=== PATIENT | female | born 1970 | race Hispanic/Latino ===

== ENCOUNTER 2019-08-13 20:08 | Inpatient (IN) | payer SELFPAY ==
[~2019-08-13 20:08] MED LIST: ISOVUE-370 76%-LOCM 1 ML ONE
[2019-08-13 20:56] LABS: #Eosinphils 0.1 thou/uL (0.0-0.7); #Lymphocytes 2.1 thou/uL (1.20-3.40); #Monocytes 0.9 thou/uL (0.11-0.59); #Neutrophils 9.8 thou/uL (1.40-6.50); %Basophils 0.1 % (0.0-1.0); %Eosinophils 0.8 % (0.0-10.0); %Lymphocytes 16.5 % (21.0-51.0); %Monocytes 6.8 % (0.0-10.0); %Neutrophils 75.9 % (42.0-75.0); Hemoglobin 11.6 g/dL (12.0-16.0); Mean Corpuscular HGB CONC 33.5 g/dL (32.0-36.0); Mean Corpuscular Hemoglobin 28.7 pg (27.0-31.0); Mean Corpuscular Volume 85.7 fL (78.0-98.0); Mean Platelet Volume 6.4 fL (7.4-10.4); Platelet Count 506 thou/uL (130-400); RBC Distribution Width 13.1 % (11.5-14.5); Red Blood Cell (RBC) Count 4.06 mill/uL (4.20-5.40)
[2019-08-13 21:19] LABS: ALT (SGPT) 20 U/L (8-55); AST (SGOT) 22 U/L (5-34); Albumin 3.4 g/dL (3.5-5.0); Alkaline Phosphatase 163 U/L (40-110); Anion Gap 13 mmol/L (10-20); BUN (Urea Nitrogen) 10 mg/dL (7.0-18.7); Bilirubin, Total 0.4 mg/dL (0.2-1.2); Calc. Creatinine Clearance 0 mL/min (70-130); Calcium 8.7 mg/dL (7.8-10.44); Carbon Dioxide 23 mmol/L (22-29); Chloride 102 mmol/L (98-107); Estimated GFR-MDRD Greater than 90; Globulin 4.7 g/dL (2.4-3.5); Glucose 121 mg/dL (70-105); Lipase 24 U/L (8-78); Protein, Total 8.1 g/dL (6.0-8.3); Sodium 134 mmol/L (136-145)
[2019-08-13] MEDS ORDERED: Morphine 4 MG/ML VIAL ONE (22:08)
--- NOTE | 2019-08-13 22:32 | RAD ---
XR Chest 1 View Portable History: Cough. Shortness of breath. Comparison: Radiograph 2012 Findings: Left basilar opacity and layering effusion. No pneumothorax. Relatively clear. No acute oss eous abnormality. Impression: Left basilar opacity concerning for infection with parapneumonic effusion. Follow-up afte r treatment recommended.
--- NOTE | 2019-08-13 22:41 | CT ---
CT Abdomen Pelvis W Con History: Abdominal pain Comparison: CT abdomen 2012 Findings: Loculated left pleural effusion with left lower lobe consolidation. Abnormal enhancement of the pleura. Right lung is relatively clear. Large volume ascites which is loculated with abnormal peritoneal enha ncement. Also peritoneal nodularity. Left adnexal mass. There are abnormal omental nodules as well as small bowel mesenteric nodules. Liver is unremarkable as well as the spleen. Normal proximal small bowel rotation. Pancreas is unrema rkable. No hydronephrosis. No acute osseous abnormality. Impression: 1. Layering left pleural effusion with left lower lobe consolidation. The pleural enhancement is abno rmal which may reflect metastatic left pleural effusion versus parapneumonic effusion. 2. Loculated ascites with abnormal peritoneal enhancement, peritoneal nodules, omental nodules, and m esenteric nodules suggesting gynecologic malignancy with peritoneal spread of tumor. 3. Abnormal cystic mass of the left adnexa concerning for malignancy. Gynecologic consultation advise d. 4. Centrally necrotic right retroperitoneal periaortic lymph nodes indicating metastatic disease. 5. Numerous external iliac and internal iliac metastatic lymph nodes.
[2019-08-13 23:05] LABS: Bilirubin Negative (Negative); Blood, Urine Negative (Negative); Clarity Clear (Clear); Glucose, Urine (Dipstick) Normal (Negative); Leukocyte Negative Leu/uL (Negative); Nitrite Negative (Negative); Protein, Urine (Dipstick) 20 mg/dL (Neg-Trace); Urobilinogen Normal mg/dL (Less than 2)
[2019-08-13] MEDS ORDERED: cefTRIAXone\\ROCEPHIN 2 GM VIAL ONE (23:08)
[2019-08-14] MEDS ORDERED: Morphine 2 MG/ML SYRINGE SLOW IVP PRN (00:05)
[2019-08-14] MEDS ORDERED: HYDROcodone/Acetaminophen 5/325 mg Tablet PO PRN ×2 (00:06)
[2019-08-14] MEDS ORDERED: Acetaminophen 325 MG TAB PO PRN (00:06)
[2019-08-14 00:20] VITALS: BMI 28.5
[2019-08-14] MEDS ORDERED: Sodium Chloride 0.65% Nasal 44 ML BOT EA NARE PRN (07:52)
[2019-08-14] MEDS ORDERED: hydrALAZINE 20 MG/ML VIAL SLOW IVP PRN (07:52)
[2019-08-14] MEDS ORDERED: Cepastat Lozenges 1 LOZ PO PRN (07:52)
[2019-08-14] MEDS ORDERED: Senokot S 8.6-50 MG TAB PO PRN (07:52)
[2019-08-14] MEDS ORDERED: Calcium Carbonate 500 MG ChewTAB PO PRN (07:52)
[2019-08-14] MEDS ORDERED: Zolpidem Tartrate 5 MG TAB PO PRN (07:52)
[2019-08-14] MEDS ORDERED: Loratadine 10 MG TAB PO PRN (07:52)
[2019-08-14] MEDS ORDERED: Diabetic Tussin 200 MG/10 ML UDCUP PO PRN (07:52)
[2019-08-14] MEDS ORDERED: Loperamide HCl 2 MG CAP PO PRN (07:52)
[2019-08-14] MEDS ORDERED: Bisacodyl 10 MG SUPP PR PRN ×2 (07:52)
[2019-08-14] MEDS ORDERED: Ondansetron PF 4 MG/2 ML Vial IVP PRN (07:52)
[2019-08-14] MEDS ORDERED: Ondansetron ODT 4 MG TAB PO PRN (07:52)
--- NOTE | 2019-08-14 08:30 | PDOC.EVN ---
Event Note - Event Note Event Note: OBGYN: I received this notification this AM for possible BRANCH STORE MANAGER consultation. However, based on the CT results, there is a high probability of Gynecologic malignancy. It is recommended to have direct Insolvency Consultant Onc referral, not OBGYN Hospitalist eval. I have discussed this with the patient's RN and we will seek case management referral to the appropriate physician group.
--- NOTE | 2019-08-14 09:52 | ULT ---
TRANSVAGINAL PELVIC ULTRASOUND WITH DOPPLER: HISTORY: History of ovarian mass. Ascites. COMPARISON: None. TECHNIQUE: Multiple nathan-scale and color Doppler images were obtained in a transabdominal and transvaginal pelvi c ultrasound. Spectral analysis of the Doppler wave-forms of the ovaries was performed. FINDINGS: Re-demonstration of cystic mass, containing internal septation of the left adnexa, measuring approxim ately 2.8 x 2 cm. There is complex pelvic ascites which does exert mass effect upon the uterus. 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 Recommend gynecologic consultation. Transcribed Date/Time: 08/14/2019 10:31 AM
[2019-08-14 12:07] LABS: INR-International Normal Ratio 1.1; PTT 33.1 SEC (22.9-36.1); Prothrombin Time 14.6 SEC (12.0-14.7)
--- NOTE | 2019-08-14 12:19 | HP ---
PRIMARY CARE PHYSICIAN: [facility] admission. REASON FOR ADMISSION: Left pleural effusion, left lower lobe consolidation, loculated ascites, and left adnexal cyst. HISTORY OF PRESENT ILLNESS: A 49-year-old female, who speaks Indonesian only, so I spoke with the patient with the help of family member, who helped me to interpret. The patient presented to emergency room with complaint of one month abdominal discomfort. She has one month abdominal discomfort, which predominantly gets worse after food. She feels that her stomach is getting bloated. She has low back pain predominantly on the left side. The patient also reports that she gets discomfort when she tried to bend. Her appetite is also reduced. The patient also lost some weight. The patient also has 2-week history of intermittent cough, which especially gets worse when she lie down and whenever she talks too much. She does have night sweats. She denies any pleuritic chest pain. She denies any fatigue , but she report shortness of breath on exertion. She denies any constipation, diarrhea, melena, or hematochezia. The patient also noticed that her abdomen was getting distended. This symptoms is going on for about a month, but for last 2 weeks, her symptoms gotten worse and that is why she decided to come to emergency room for evaluation. In the emergency room, the patient had routine blood test done, which showed leukocytosis and thrombocytosis and mild anemia. Her albumin was 3.4, and her urinalysis was clean. CT abdomen and pelvis showed left pleural effusion and left lower lobe consolidation as well as pleural enhancement and there was loculated ascites with peritoneal nodules and also found with abnormal cystic mass in left adnexa as well as necrotic right-sided retroperitoneal periaortic lymph node. In the emergency room, the patient was given Rocephin 2 g and morphine 4 mg. Subsequently, she was admitted to oncology floor. PAST MEDICAL HISTORY: History of liver abscess in 2012, required CT-guided drainage. PAST SURGICAL HISTORY: CT-guided liver abscess drainage, femoral central line in 2012. PAST PSYCHIATRIC HISTORY: Reviewed and negative. SOCIAL HISTORY: The patient is single. She denies any smoking. No alcohol. No other illicit drug abuse. FAMILY HISTORY: Positive for colon cancer to her mother. [employer] HISTORY: The patient has regular menstrual cycle and her last menstrual cycle last month. ALLERGY: NKDA REVIEW OF SYSTEMS: CONSTITUTIONAL: Negative for weight loss or gain, ability to conduct usual activities. SKIN: Negative for rash, itching. EYES: Negative for double vision, pain. ENT/MOUTH: Negative for nose bleeding, neck stiffness, pain, tenderness. CARDIOVASCULAR: Negative for palpitations, dyspnea on exertion, orthopnea. RESPIRATORY: Negative for shortness of breath, wheezing, cough, hemoptysis, fever or night sweats. GASTROINTESTINAL: Negative for poor appetite, abdominal pain, heartburn, nausea , vomiting, constipation, or diarrhea. GENITOURINARY: Negative for urgency, frequency, dysuria, nocturia. MUSCULOSKELETAL: Negative for pain, swelling. NEUROLOGIC/PSYCHIATRIC: Negative for anxiety, depression. ALLERGY/IMMUNOLOGIC: Negative for skin rash, bleeding tendency. Please see my HPI for pertinent positives and negatives. All other review of systems reviewed and negative except as mentioned in HPI. EMERGENCY ROOM COURSE: The patient was given Rocephin and morphine. PHYSICAL EXAMINATION: VITAL SIGNS: Currently; blood pressure 113/74, pulse 115, respiratory rate 18, temperature 99.4, and saturation 96% on room air. Weight 64.4 kg. GENERAL: The patient is currently alert and awake, in no obvious acute distress. HEENT: Head, normocephalic and atraumatic. Eyes, pupils are round and reactive to light. Extraocular muscle intact. ENT, oropharynx within normal limits. Moist mucous membrane. No oral lesion. No pharyngeal erythema. No exudate. NECK: Supple. No JVD. No thyromegaly. No carotid bruit. No jugular venous distention. LUNGS: Air entry reduced on the left side without any obvious rales or wheezing. No respiratory distress. No accessory muscles of respiration in use. CARDIAC: S1 and S2 regular. No murmur. No gallop. No rub. ABDOMEN: Distended. Mild discomfort noted in left lower quadrant. No peritoneal sign. No guarding. No rigidity. No rebound. BACK: The patient does have discomfort on the left side of the back, but no point tenderness. EXTREMITIES: No edema. Good distal pulsation. No calf tenderness. SKIN: No skin rash. HEMATOLOGICAL SYSTEM: No lymphadenopathy. NEUROLOGIC: Nonfocal examination. SIGNIFICANT LABORATORY DATA: CBC; WBC 13.0, hemoglobin 11.6, and platelets 506 with left shift. BMP; sodium 134, potassium 4.0, chloride 102, carbon dioxide 23, BUN 10, creatinine 0.61, glucose 121, and calcium 8.7. LFT; AST 22, ALT 20, alkaline phosphatase 163, albumin 3.4, and lipase 24. TSH 4.86. Troponin negative. BNP less than 10. Urinalysis unremarkable. Chest x-ray showing left basilar opacity concerning for infection with parapneumonic effusion. CT abdomen and pelvis showing left pleural effusion and left lower lobe consolidation, loculated ascites, peritoneal nodule, cystic mass in the left adnexa, necrotic right peritoneal periaortic lymph node. Ultrasound pelvis showing complex left ovarian cystic mass with complex ascites. ASSESSMENT AND PLAN: 1. Left pleural effusion and left lower lobe consolidation. The patient does not report any fever, but she does have cough. I am suspecting predominantly towards pleural effusion, likely due to underlying ovarian malignancy, but underlying consolidation is less likely. We will give her Rocephin 1 g q.24 hour and Levaquin 500 mg IV daily for suspected pneumonia, but which is less likely. 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 We will continuously monitor while in hospital and give empiric antibiotic for benefit of doubt, we will continue with IV fluid. 2. Loculated and complex ascites, likely related with underlying ovarian malignancy. The patient also has a peritoneal nodule and metastasis. Ovarian malignancy is highly suspected. 3. Left adnexal complex cystic mass. 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 [employer] doctor is already consulted and they prefer her to be transferred to other hospital for followup care. At this point, the patient is stable and problem is going on for a period of time and that is why the patient will benefit from [employer] oncologist at [place], [place]. The patient already has advanced disease and her long-term prognosis is poor. We will consult Palliative Care. 4. Deep venous thrombosis prophylaxis, Lovenox 40 mg subcu daily. Gastrointestinal prophylaxis, Pepcid 20 mg p.o. b.i.d. Code status, the patient is full code. The patient does not have any surrogate decision maker. Disposition plan based on clinical course. 5. Hypoalbuminemia likely due to chronic disease. Plan of care extensively discussed with the patient in detail with the help of polyethylene bag machine operator at bedside. Job ID: [id number] [facility]
--- NOTE | 2019-08-14 12:42 | CON ---
DATE OF CONSULTATION: REASON FOR CONSULT: Metastatic disease. HISTORY OF PRESENT ILLNESS: The patient is a 49-year-old Armenian-speaking female, who presented to the emergency room for back and abdominal pain. Pain started over a month ago and has progressively worsened. She complains of abdominal distention, but denies nausea, vomiting, diarrhea, or constipation. She underwent an abdomen and pelvis CT scan which demonstrated a left pleural effusion with left lower lobe consolidation. There was loculated ascites with abnormal peritoneal enhancement. There were peritoneal, omental, and mesenteric nodules. There was an abnormal cystic mass of the left adnexa; centrally necrotic right retroperitoneal periaortic lymph nodes and numerous external iliac and internal iliac metastatic lymph nodes. She was admitted for further workup. She has undergone a pelvic ultrasound which confirms a large complex left ovarian cystic mass measuring 2.8 x 2 cm. She denies any discharge or bleeding from her vagina. Her last pelvic exam was 13 years ago when her child was born. History was obtained from the patient and friends at bedside using the casey saw operator, Anna as official court interpreter. PAST MEDICAL HISTORY: None. PAST SURGICAL HISTORY: None. ALLERGIES: NO KNOWN DRUG ALLERGIES. HOME MEDICATIONS: None. FAMILY HISTORY: Mother had colon cancer. SOCIAL HISTORY: . Has a 13-year-old child. Lives in [place]. 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 No alcohol, tobacco, or illicit drug use. REVIEW OF SYSTEMS: CONSTITUTIONAL: No fever or chills. Positive for night sweats. EYES: No blurred or double vision. ENT: No pain, hoarseness, sore throat, or dysphagia. CV: No chest pain, palpitations, or syncope. RESPIRATORY: Positive for shortness of breath. ABDOMEN: Positive for abdominal distention. : No dysuria or hematuria. MUSCULOSKELETAL: Positive for back pain. SKIN: No rash or pruritus. HEMATOLOGICAL: No bleeding, bruising, or clotting. NEUROLOGICAL: No headaches, numbness, tingling, or seizure activity. PSYCH: No anxiety or depression. PHYSICAL EXAMINATION: VITAL SIGNS: Temperature is 98.8, pulse is 93, respiratory rate is 18, BP is 124/75. She is 93% on room air. GENERAL: This is a well-developed, well-nourished female, in no acute distress. HEENT: Normocephalic and atraumatic. Pupils are equal and reactive to light. NECK: Supple. CV: Regular rate and rhythm. LUNGS: Clear to auscultation. ABDOMEN: Distended and firm. Bowel sounds are positive. There is no organomegaly. EXTREMITIES: No clubbing or cyanosis. SKIN: No rash. HEMATOLOGICAL: No petechiae or purpura. NEUROLOGICAL: Nonfocal. BREASTS: She has no nodules, masses, or skin changes. PERTINENT LABS AND X-RAYS: Current WBCs are 13, hemoglobin 11.6, hematocrit 34.8, platelet count is 506,000, 75% neutrophils, 16% lymphocytes. Sodium is 134, potassium 4.0, chloride 102, CO2 is 23, BUN is 10, creatinine 0.61, calcium 8.7, bilirubin 0.7, AST is 22, ALT is 20, alkaline phosphatase is 163. Troponin is negative. BNP is less than 10. Serum total protein 8.1, albumin 3.4, globulin 2.7. TSH is normal. Urine is negative. ASSESSMENT: Metastatic disease with ovarian mass, ascites, pleural effusion. DISCUSSION: The patient needs a tissue diagnosis. She has symptomatic ascites. We will order a paracentesis and hopefully, a diagnosis can be obtained from cytology. Ultimately, she would see Product Safety Consultant/Oncology surgeon. However, the patient has no insurance and it may be very difficult to get her to a surgeon. The financial counselors have seen the patient and are working on assistance. Further recommendations will be based once cytology has completed. Thank you for the consult. Job ID: [id number] [facility]
[2019-08-14] MEDS ORDERED: Sodium Bicarbonate 2.5 MEQ/5 ML VIAL ONE (13:02)
--- NOTE | 2019-08-14 14:57 | ULT ---
Ultrasound-guided paracentesis: HISTORY: Symptomatic, complex ascites FINDINGS: Informed consent obtained prior to the procedure. Preprocedural imaging demonstrated signif icant ascites throughout the abdomen and pelvis. Right lower quadrant prepped and draped in normal sterile fashion and anesthetized with 1% buffered l idocaine. With direct sonographic guidance, 5 Khmer Yueh catheter is advanced into the ascites and removal of the stylet yielded sanguinousfluid. 2.7 L were removed. The patient tolerated the procedure well. No postprocedural complications. IMPRESSION: Successful ultrasound-guided paracentesis yielding 2.7 L of sanguinous ascites.
[2019-08-14] MEDS: HYDROcodone/Acetaminophen 7.5/325 mg Tablet PO PRN ×2 (15:26→21:59)
[2019-08-14] MEDS: Famotidine 20 MG TAB PO SCH ×2 (15:30→21:58)
[2019-08-14] MEDS: Enoxaparin Sodium 40 MG/0.4 ML SYRINGE SC SCH (15:30)
[2019-08-14] MEDS: Famotidine/PF 20 mg/2ml Vial SLOW IVP SCH (15:48)
[2019-08-14] MEDS: Sodium Chloride 0.9% 1,000 ML IV SCH (16:05)
[2019-08-14] MEDS ORDERED: FLU VACC QS2019-20(6MOS UP)/PF 60 MCG/0.5 ML SYRINGE IM ONE (21:00)
[2019-08-14] MEDS ORDERED: Prevnar 13-Val Conj/PF 0.5 ML SYRINGE IM ONE (21:00)
[2019-08-14] MEDS: cefTRIAXone\\ROCEPHIN 1 GM in Sodium Chloride 0.9% 100 ML IVPB SCH (21:59)
[2019-08-15] MEDS: HYDROcodone/Acetaminophen 7.5/325 mg Tablet PO PRN (02:21)
[2019-08-15 03:58] LABS: #Eosinphils 0.1 thou/uL (0.0-0.7); #Lymphocytes 1.8 thou/uL (1.20-3.40); #Neutrophils 10.4 thou/uL (1.40-6.50); %Basophils 0.1 % (0.0-1.0); %Eosinophils 0.7 % (0.0-10.0); %Lymphocytes 13.7 % (21.0-51.0); %Monocytes 7.8 % (0.0-10.0); %Neutrophils 77.6 % (42.0-75.0); Hemoglobin 11.3 g/dL (12.0-16.0); Mean Corpuscular HGB CONC 33.2 g/dL (32.0-36.0); Mean Corpuscular Hemoglobin 28.8 pg (27.0-31.0); Mean Corpuscular Volume 86.8 fL (78.0-98.0); Mean Platelet Volume 6.3 fL (7.4-10.4); Platelet Count 499 thou/uL (130-400); RBC Distribution Width 13.1 % (11.5-14.5); Red Blood Cell (RBC) Count 3.91 mill/uL (4.20-5.40); White Blood Cell (WBC) Count 13.3 thou/uL (4.8-10.8)
[2019-08-15 04:20] LABS: ALT (SGPT) 15 U/L (8-55); AST (SGOT) 16 U/L (5-34); Albumin 2.7 g/dL (3.5-5.0); Alkaline Phosphatase 126 U/L (40-110); Anion Gap 9 mmol/L (10-20); BUN (Urea Nitrogen) 8 mg/dL (7.0-18.7); Bilirubin, Total 0.3 mg/dL (0.2-1.2); Calc. Creatinine Clearance 124 mL/min (70-130); Calcium 8.2 mg/dL (7.8-10.44); Carbon Dioxide 23 mmol/L (22-29); Chloride 105 mmol/L (98-107); Estimated GFR-MDRD Greater than 90; Glucose 105 mg/dL (70-105); Potassium 3.9 mmol/L (3.5-5.1); Protein, Total 6.7 g/dL (6.0-8.3); Sodium 133 mmol/L (136-145)
[2019-08-15] MEDS: Famotidine/PF 20 mg/2ml Vial SLOW IVP SCH ×3 (06:56→20:34)
[2019-08-15] MEDS: Sodium Chloride 0.9% 1,000 ML IV SCH (10:22)
[2019-08-15] MEDS: Enoxaparin Sodium 40 MG/0.4 ML SYRINGE SC SCH (10:22)
[2019-08-15] MEDS: Famotidine 20 MG TAB PO SCH ×2 (10:23→23:27)
[2019-08-15] MEDS: Acetaminophen 325 MG TAB PO PRN ×2 (10:24→19:10)
--- NOTE | 2019-08-15 11:38 | PDOC.HOSPP ---
- Subjective Encounter Date: 08/15/19 Encounter Time: 07:00 Subjective: Patient seen and examined. No new complaints. No overnight events pt has dry cough, no chest pain, less abdominal discomfort - Objective Vital Signs & Weight: Vital Signs (12 hours) Temp Pulse Resp BP Pulse Ox 08/15/19 09:47 98.3 F 90 16 130/75 95 08/15/19 09:15 95 08/15/19 08:34 98.3 F 90 16 130/75 95 Weight Admit Weight 141 lb 6.4 oz Weight 141 lb 6.4 oz I&O: 08/14/19 08/15/19 08/16/19 06:59 06:59 06:59 Intake Total 240 Balance 240 Result Diagrams: 08/15/19 03:45 08/15/19 03:49 Hospitalist ROS - Review of Systems Constitutional: denies: fever, chills, sweats, weakness, malaise, other Eyes: denies: pain, vision change, conjunctivae inflammation, eyelid inflammation, redness, other ENT: denies: ear pain, ear discharge, nose pain, nose discharge, nose congestion , mouth pain, mouth swelling, throat pain, throat swelling, other Respiratory: reports: cough, dry. denies: shortness of breath, hemoptysis, SOB with excertion, pleuritic pain, sputum, wheezing, other Cardiovascular: denies: chest pain, palpitations, orthopnea, paroxysmal noc. dyspnea, edema, light headedness, other Gastrointestinal: denies: nausea, vomiting, abdominal pain, diarrhea, constipation, melena, hematochezia, other Genitourinary: denies: dysuria, frequency, incontinence, hematuria, retention, other Musculoskeletal: denies: neck pain, shoulder pain, arm pain, back pain, hand pain, leg pain, foot pain, other Skin: denies: rash, lesions, walker, bruising, other - Medication Medications: Active Medications Generic Name Dose Route Start Last Admin Trade Name Freq PRN Reason Stop Dose Admin Acetaminophen 650 mg 08/14/19 07:52 08/15/19 10:24 Tylenol PO 650 mg Q4H PRN Administration Headache/Fever/Mild Pain (1-3) Hydrocodone Bitart/Acetaminophen 1 tab 08/14/19 07:52 08/15/19 02:21 [place] 7.5/325 PO 1 tab Q4H PRN Administration Moderate Pain (4-6) Enoxaparin Sodium 40 mg 08/14/19 09:00 08/15/19 10:22 Lovenox SC 40 mg 0900 DIMITRIOS Administration Famotidine 20 mg 08/14/19 09:00 08/15/19 10:59 Pepcid SLOW IVP Not Given Q12HR DIMITRIOS Famotidine 20 mg 08/14/19 09:00 08/15/19 10:23 Pepcid PO 20 mg BID DIMITRIOS Administration Sodium Chloride 1,000 mls @ 100 mls/hr 08/14/19 08:00 08/15/19 10:22 Normal Saline 0.9% IV 1,000 mls .Q10H DIMITRIOS Administration Ceftriaxone Sodium 1 gm/ 100 mls @ 200 mls/hr 08/14/19 23:00 08/14/19 21:59 Sodium Chloride IVPB 100 mls 2300 DIMITRIOS Administration Levofloxacin 500 mg/ Device 100 mls @ 100 mls/hr 08/14/19 12:00 08/14/19 16: 26 IVPB 100 mls 1200 DIMITRIOS Administration Sodium Chloride 10 ml 08/14/19 09:00 08/14/19 22:00 Flush - Normal Saline IVF 10 ml Q12HR DIMITRIOS Administration Zolpidem Tartrate 5 mg 08/14/19 07:52 08/14/19 21:58 Ambien PO 5 mg HSPRN PRN Administration Insomnia - Exam General Appearance: NAD, awake alert Eye: PERRL, anicteric sclera ENT: normocephalic atraumatic, no oropharyngeal lesions Neck: supple, symmetric, no JVD, no thyromegaly, no lymphadenopathy Heart: RRR, no murmur, no gallops, no rubs, normal peripheral pulses Respiratory: CTAB Respiratory - other findings: air entry reduced on left side base Gastrointestinal: soft, non-tender, non-distended, normal bowel sounds, no palpable masses Extremities: no cyanosis, no clubbing, no edema Skin: normal turgor, no lesions Neurological: cranial nerve grossly intact, no focal deficits Musculoskeletal: normal tone, normal strength, no muscle wasting Psychiatric: normal affect, normal behavior, A&O x 3 Hosp A/P (1) Left lower lobe consolidation Code(s): J18.1 - LOBAR PNEUMONIA, UNSPECIFIED ORGANISM Status: Acute Plan: suspected for CAP (2) Pleural effusion, left Code(s): J90 - PLEURAL EFFUSION, NOT ELSEWHERE CLASSIFIED Status: Acute Plan: suspected from Mlg (3) Ascites, malignant Code(s): R18.0 - MALIGNANT ASCITES Status: Acute (4) Complex cyst of left ovary Code(s): N83.292 - OTHER OVARIAN CYST, LEFT SIDE Status: Acute Plan: suspected for cancer (5) Peritoneal carcinomatosis Code(s): C78.6 - SECONDARY MALIGNANT NEOPLASM OF RETROPERITON AND PERITONEUM; C80.1 - MALIGNANT (PRIMARY) NEOPLASM, UNSPECIFIED Status: Suspected (6) Hypoalbuminemia Code(s): E88.09 - OTH DISORDERS OF PLASMA-PROTEIN METABOLISM, NEC Status: Acute - Plan old records reviewed/req, continue antibiotics, manager social responsibility, DVT proph w/ lovenox, dc IVF 08/15/19- spoke with pt with hungarian interpretor phone ang again updated plan of care, follow up on cytology report from ascites, continue empiric antibiotic for suspected pneumonia which is really doubtful, pt does not appear sick with infection, most likely related with mlg process. ambulate as tolerated. medication reviewed as above, symptomatic treatment
--- NOTE | 2019-08-15 15:41 | PDOC.PALCO ---
Palliative Care Consult - Consult Details Requesting Physician: Althea Walls Reason for Consult: assistance with communication prognosis/disease Family Members Present: None - Pertinent HPI 49 year old female who presented to the emergency room with back and abdominal pain that began over a month ago and has progressively gotten worse. CT of abdomen and pelvis revealed left pleural effusion, left lower lobe consolidations as well as ascites. Patient Confirmed ovarial mass. Admitted for further evaluation. Identified metastatic cancer, Oncology is attempting to secure an appointment at discharge in the [place]. - Pertinent PMH None - Social History Smoking Status: Never smoker Smoking: no tobacco exposure Alcohol Use: none Drug Use History: none Living Situation: dependent child - Medications MAR Reviewed: Yes - Allergies Allergies/Adverse Reactions: Allergies Allergy/AdvReac Type Severity Reaction Status Date / Time No Known Allergies Allergy Unverified 08/14/19 00:04 - Subjective distended abdomin, denies nausea, vomiting, or pain. Discomfort related to swollen abdomen. In 10 point review other symptoms negative. - Objective Vital Signs: Vital Signs - Most Recent Temp Pulse Resp BP Pulse Ox 98.3 F 90 16 130/75 95 08/15/19 09:47 08/15/19 09:47 08/15/19 09:47 08/15/19 09:47 08/15/19 09:47 Palliative Performance Scale: 70 - Physical Exam Constitutional: NAD HEENT: PERRLA, moist MMs, EOMI Respiratory: unlabored breathing Cardiovascular: RRR, no significant murmur Deviation from normal: Distended, tender with gentle palpation Musculoskeletal: no edema, pulses present Neurological: moves all 4 limbs Psychiatric: A&O x 3 Skin: normal turgor, cap refill <2 seconds - Problem List (1) Palliative care encounter Code(s): Z51.5 - ENCOUNTER FOR PALLIATIVE CARE Current Visit: Yes Status: Acute (2) Ascites, malignant Code(s): R18.0 - MALIGNANT ASCITES Current Visit: Yes Status: Acute (3) Complex cyst of left ovary Code(s): N83.292 - OTHER OVARIAN CYST, LEFT SIDE Current Visit: Yes Status: Acute (4) Left lower lobe consolidation Code(s): J18.1 - LOBAR PNEUMONIA, UNSPECIFIED ORGANISM Current Visit: Yes Status: Acute (5) Pleural effusion, left Code(s): J90 - PLEURAL EFFUSION, NOT ELSEWHERE CLASSIFIED Current Visit: Yes Status: Acute - Plan/Recommendations Plan: Audio cone examiner used for communication. Michael vázquez history. Understands that she has cancer but believes it can be cured, discussed metastatic nature of current cancer diagnosis. Discussed if she has transportation for any follow up appointments arranged. Discussed care when patient is in the hospital for her daughter as they live alone and her daughter is 13. Palliative Care will continue to follow and assist with communication in relation to disease process and support of patient [40] minutes spent on this encounter with >50% of the time in counseling and coordination of care. Thank you for this very appropriate consult.
[2019-08-15] MEDS: cefTRIAXone\\ROCEPHIN 1 GM in Sodium Chloride 0.9% 100 ML IVPB SCH (23:27)
[2019-08-16] MEDS: HYDROcodone/Acetaminophen 7.5/325 mg Tablet PO PRN (03:57)
[2019-08-16 08:02] VITALS: BP 122/71; TEMP 98.4
[2019-08-16] MEDS: Enoxaparin Sodium 40 MG/0.4 ML SYRINGE SC SCH (09:34)
[2019-08-16] MEDS: Famotidine 20 MG TAB PO SCH (09:35)
[2019-08-16] MEDS: Acetaminophen 325 MG TAB PO PRN (09:43)
[2019-08-16] MEDS ORDERED: Senokot S 8.6-50 MG TAB ONE (09:49)
--- NOTE | 2019-08-16 10:17 | PDOC.HOSPP ---
- Subjective Encounter Date: 08/16/19 Encounter Time: 07:00 Subjective: i spoke with pt with y[place] interpretor phone and told that she will need follow up with [facility] after discharge and pt expressed understanding, today she is doing well - Objective Vital Signs & Weight: Vital Signs (12 hours) Temp Pulse Resp BP Pulse Ox 08/16/19 07:58 98.4 F 86 18 122/71 97 08/16/19 00:09 96 Weight Admit Weight 141 lb 6.4 oz Weight 141 lb 6.4 oz I&O: 08/15/19 08/16/19 08/17/19 06:59 06:59 06:59 Intake Total 240 Balance 240 Result Diagrams: 08/15/19 03:45 08/15/19 03:49 Hospitalist ROS - Review of Systems Eyes: denies: pain, vision change, conjunctivae inflammation, eyelid inflammation, redness, other ENT: denies: ear pain, ear discharge, nose pain, nose discharge, nose congestion , mouth pain, mouth swelling, throat pain, throat swelling, other Respiratory: denies: cough, dry, shortness of breath, hemoptysis, SOB with excertion, pleuritic pain, sputum, wheezing, other Cardiovascular: denies: chest pain, palpitations, orthopnea, paroxysmal noc. dyspnea, edema, light headedness, other Gastrointestinal: denies: nausea, vomiting, abdominal pain, diarrhea, constipation, melena, hematochezia, other Genitourinary: denies: dysuria, frequency, incontinence, hematuria, retention, other Musculoskeletal: denies: neck pain, shoulder pain, arm pain, back pain, hand pain, leg pain, foot pain, other - Medication Medications: Active Medications Generic Name Dose Route Start Last Admin Trade Name Freq PRN Reason Stop Dose Admin Acetaminophen 650 mg 08/14/19 07:52 08/16/19 09:43 Tylenol PO 650 mg Q4H PRN Administration Headache/Fever/Mild Pain (1-3) Hydrocodone Bitart/Acetaminophen 1 tab 08/14/19 07:52 08/16/19 03:57 Ralph 7.5/325 PO 1 tab Q4H PRN Administration Moderate Pain (4-6) Enoxaparin Sodium 40 mg 08/14/19 09:00 08/16/19 09:34 Lovenox SC 40 mg 0900 DIMITRIOS Administration Famotidine 20 mg 08/14/19 09:00 08/15/19 20:34 Pepcid SLOW IVP Not Given Q12HR DIMITRIOS Famotidine 20 mg 08/14/19 09:00 08/16/19 09:35 Pepcid PO 20 mg BID DIMITRIOS Administration Ceftriaxone Sodium 1 gm/ 100 mls @ 200 mls/hr 08/14/19 23:00 08/15/19 23:27 Sodium Chloride IVPB 100 mls 2300 DIMITRIOS Administration Levofloxacin 500 mg/ Device 100 mls @ 100 mls/hr 08/14/19 12:00 08/15/19 16: 48 IVPB 100 mls 1200 DIMITRIOS Administration Senna/Docusate Sodium 2 tab 08/14/19 07:52 08/16/19 09:43 Senokot S PO 2 tab BID PRN Administration Constipation Sodium Chloride 10 ml 08/14/19 09:00 08/16/19 09:35 Flush - Normal Saline IVF 10 ml Q12HR DIMITRIOS Administration Zolpidem Tartrate 5 mg 08/14/19 07:52 08/14/19 21:58 Ambien PO 5 mg HSPRN PRN Administration Insomnia - Exam General Appearance: NAD, awake alert Eye: PERRL, anicteric sclera ENT: normocephalic atraumatic, no oropharyngeal lesions Neck: supple, symmetric, no JVD, no thyromegaly Heart: RRR, no murmur, no gallops, no rubs, normal peripheral pulses Respiratory: CTAB, no wheezes, no rales, no ronchi Gastrointestinal: soft, non-tender, non-distended, normal bowel sounds Extremities: no cyanosis, no clubbing, no edema Skin: normal turgor, no lesions, no rashes Neurological: cranial nerve grossly intact, no focal deficits Musculoskeletal: normal tone, normal strength Psychiatric: normal affect, normal behavior Hosp A/P (1) Left lower lobe consolidation Code(s): J18.1 - LOBAR PNEUMONIA, UNSPECIFIED ORGANISM Status: Acute (2) Pleural effusion, left Code(s): J90 - PLEURAL EFFUSION, NOT ELSEWHERE CLASSIFIED Status: Acute (3) Ascites, malignant Code(s): R18.0 - MALIGNANT ASCITES Status: Acute (4) Complex cyst of left ovary Code(s): N83.292 - OTHER OVARIAN CYST, LEFT SIDE Status: Acute (5) Peritoneal carcinomatosis Code(s): C78.6 - SECONDARY MALIGNANT NEOPLASM OF RETROPERITON AND PERITONEUM; C80.1 - MALIGNANT (PRIMARY) NEOPLASM, UNSPECIFIED Status: Suspected (6) Hypoalbuminemia Code(s): E88.09 - OTH DISORDERS OF PLASMA-PROTEIN METABOLISM, NEC Status: Acute - Plan old records reviewed/req, continue antibiotics, social work msw 08/15/19- spoke with pt with y[place] interpretor phone ang again updated plan of care, follow up on cytology report from ascites, continue empiric antibiotic for suspected pneumonia which is really doubtful, pt does not appear sick with infection, most likely related with mlg process. ambulate as tolerated. medication reviewed as above, symptomatic treatment 08/16/19- we are trying to help her financially to get medicaid but otherwise she will need follow up after discharge, see my discharge ron, will consider dc and out pt follow up if oncology ok today
--- NOTE | 2019-08-16 12:03 | DIS ---
DATE OF ADMISSION: 08/14/2019 DATE OF DISCHARGE: 08/16/2019 PRIMARY CARE PHYSICIAN: [facility] Call admission. DISCHARGE DISPOSITION: Home. PRIMARY DISCHARGE DIAGNOSES: 1. Complex cyst of left ovary. 2. Malignant ascites. 3. Hypoalbuminemia. 4. Left lower lobe consolidation. 5. Left pleural effusion. SECONDARY DISCHARGE DIAGNOSIS: None. PRIMARY PROCEDURE/OPERATION: Paracentesis. RADIOLOGICAL INVESTIGATION: Abdomen and pelvis CT scan showed complex cyst in the left ovary with peritoneal nodule and complex ascites as well as left pleural effusion and left lower lobe consolidation. Chest x-ray was consistent with left pleural effusion and left lower lobe consolidation. Pelvic ultrasound was consistent with left adnexal complex cyst. SIGNIFICANT LABORATORY DATA: WBC 13.3, hemoglobin 11.3, and platelets 499. INR 1.1. Sodium 133, potassium 3.9, BUN 8, creatinine 0.57, and alkaline phosphatase 126. Troponin negative. BNP less than 10. Albumin 2.7. TSH 4.86. Urinalysis unremarkable. DISCHARGE MEDICATION: Levaquin 500 mg p.o. daily for 7 days. CONTRAINDICATION: None. CODE STATUS: Full code. INPATIENT BUSINESS QUALITY ASSURANCE ANALYST: Oncology Group was consulted while in hospital. [facility] hospitalist was consulted while in hospital. Palliative Care Team was consulted while in hospital. TEST RESULT PENDING ON DISCHARGE: Pathology report from cytology of fluid. DISCHARGE PLAN: Post hospital, the patient will need an appointment with Oncology as well as the patient was given instruction about to make appointment with [facility] oncologist in [place], [place] with Dr. Anaya. The patient will also make appointment with primary care physician. HOSPITAL COURSE: A 49-year-old female who is sick for almost a month, but her symptoms have gradually gotten worse over last couple of weeks and that is why she came to the hospital. She was having abdominal distention, abdominal fullness, and mild shortness of breath. In the emergency room, she was found with complex ascites, a left adnexal cystic mass, and peritoneal nodule and peritoneal carcinomatosis, as well as the patient also found with left pleural effusion and left lower lobe consolidation. 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 Anaya that was instructed to patient with the help of clinical aide. While in hospital, we also initiated to help her for her financially. While in hospital, we treated her with Rocephin and Levaquin for doubtful pneumonia which is less likely, but on discharge we prescribed Levaquin for another 7 days. The patient has already advanced metastatic ovarian cancer. Her prognosis is guarded and that is why Palliative Care was also consulted while in hospital. At this point, further evaluation will defer to Oncology and FRONT OFFICE AGENT-Oncology after she makes appointment. The patient was seen and examined at bedside today. The patient is medically stable for discharge with outpatient ongoing care. Job ID: [id number]
--- NOTE | 2019-08-16 13:38 | PDOC.MOPN ---
Interval History: Feels better after parenthesis - Vital Signs Vital Signs: Vital Signs (12 hours) Temp Pulse Resp BP Pulse Ox 08/16/19 07:58 98.4 F 86 18 122/71 97 Weight Admit Weight 141 lb 6.4 oz Weight 141 lb 6.4 oz - Physical Exam General: Alert, Oriented x3, No acute distress HEENT: Atraumatic, PERRLA, EOMI, Mucous membr. moist/pink Lungs: Clear to auscultation, Normal air movement Cardiovascular: Regular rate, Normal S1, Normal S2, No murmurs, Gallops, Rubs Abdomen: Other Extremities: No clubbing Skin: No rashes, No breakdown, No significant lesion Neurological: Normal gait, Normal speech, Strength at 5/5 X4 ext, Normal tone, Sensation intact, Cranial nerves 3-12 NL, Reflexes 2+ Psych/Mental Status: Mental status NL, Mood NL - Labs Result Diagrams: 08/15/19 03:45 08/15/19 03:49 Status: lab reviewed by me A/P - Problem (1) Ovarian cancer Current Visit: Yes Status: Acute (2) Ascites, malignant Current Visit: Yes Code(s): R18.0 - MALIGNANT ASCITES Status: Acute - Plan Plan: Cytology confirms Ovarian cancer Patient to follow-up 08/27/[address] Summers Continue financial screening.
[2019-08-16] MEDS: Famotidine/PF 20 mg/2ml Vial SLOW IVP SCH (14:24)
[2019-08-17] MEDS ORDERED: FLU VACC QS2019-20(6MOS UP)/PF 60 MCG/0.5 ML SYRINGE IM ONE (12:15)
[2019-08-17] MEDS ORDERED: Prevnar 13-Val Conj/PF 0.5 ML SYRINGE IM ONE (12:15)
== END 2019-08-16 14:59 | disposition home or self-care (01) | DRG 754 ==
LOC: ERS 20:08 → ONC 08-14 00:02
PROVIDERS: ADMIT Hospitalist; ATTEND Hospitalist
PROC: 0W9G3ZZ Drainage of Peritoneal Cavity, Percutaneous Approach (ICD-10-PCS; principal; 2019-08-14)
PROC: 3E0234Z Introduction of Serum, Toxoid and Vaccine into Muscle, Percutaneous Approach (ICD-10-PCS; 2019-08-16)
PROC: 3E02340 Introduction of Influenza Vaccine into Muscle, Percutaneous Approach (ICD-10-PCS; 2019-08-16)
DX: C56.2 Malignant neoplasm of left ovary (principal); J18.1 Lobar pneumonia, unspecified organism; R18.0 Malignant ascites; C78.6 Secondary malignant neoplasm of retroperitoneum and peritoneum; J90 Pleural effusion, not elsewhere classified; Z51.5 Encounter for palliative care; M54.5 Low back pain; D64.9 Anemia, unspecified; E88.09 Other disorders of plasma-protein metabolism, not elsewhere classified; Z23 Encounter for immunization
CPT/HCPCS: 36415; 49083; 71045; 74177; 76856; 80053; 81003; 83690; 83880; 84443; 84484; 85025; 85610; 85730; 88112; 88305; 88341; 88342; 90471; 90670; 96374; 96375; G0009; J0696; J1650; J1956; J2270; J3490; Q9966

== ENCOUNTER 2019-09-03 08:50 | Day surgery (SDC) | payer OTHER, SELFPAY ==
[~2019-09-03 08:50] MED LIST changes: +CARBOplatin 600 MG in Sodium Chloride 0.9% 250 ML 250 ML IVPB SCH; +DOCETAXEL IVPB SCH; +Dexamethasone 20 MG in Sodium Chloride 0.9% 50 ML IVPB SCH; +Dexamethasone Sod Phosphate 20 MG in Sodium Chloride 0.9% 50 ML IVPB SCH; +Famotidine/PF 20 MG in Sodium Chloride 0.9% 50 ML IVPB SCH; -ISOVUE-370 76%-LOCM 1 ML ONE; +PACLITAXEL IVPB SCH; +Palonosetron HCl 0.25 MG in Sodium Chloride 0.9% 50 ML IVPB SCH; +SODIUM CHLORIDE 0.9% IVPB SCH; +diphenhydrAMINE 50 MG in Sodium Chloride 0.9% 50 ML IVPB SCH
[2019-09-03] MEDS ORDERED: Sodium Chloride 0.9% 20 ML ONE (09:14)
[2019-09-03 09:56] VITALS: BP 115/64; TEMP 98.5
== END 2019-09-03 15:38 | disposition home or self-care (01) ==
LOC: ONC/OP 08:50
PROVIDERS: ATTEND Internal Medicine Hematology & Oncology
DX: Z51.11 Encounter for antineoplastic chemotherapy (principal); C56.2 Malignant neoplasm of left ovary
CPT/HCPCS: 96375; 96413; 96415; 96417; J1100; J1200; J2469; J7050; J9045; J9267; S0028

== ENCOUNTER 2019-09-24 10:56 | Day surgery (SDC) | payer OTHER ==
[~2019-09-24 10:56] MED LIST changes: -DOCETAXEL IVPB SCH; -Dexamethasone 20 MG in Sodium Chloride 0.9% 50 ML IVPB SCH
[2019-09-24 11:19] VITALS: BP 126/73; TEMP 98.6
== END 2019-09-24 16:28 | disposition home or self-care (01) ==
LOC: ONC/OP 10:56
PROVIDERS: ATTEND Internal Medicine Hematology & Oncology
DX: Z51.11 Encounter for antineoplastic chemotherapy (principal); C56.2 Malignant neoplasm of left ovary
CPT/HCPCS: 96375; 96413; 96415; J1100; J1200; J2469; J7050; J9045; J9267; S0028

== ENCOUNTER 2019-10-15 11:30 | Day surgery (SDC) | payer OTHER ==
[2019-10-15] MEDS ORDERED: Sodium Chloride 0.9% 20 ML ONE (13:02)
== END 2019-10-15 17:16 | disposition home or self-care (01) ==
LOC: ONC/OP 11:30
PROVIDERS: ATTEND Internal Medicine Hematology & Oncology
DX: Z51.11 Encounter for antineoplastic chemotherapy (principal); C56.2 Malignant neoplasm of left ovary
CPT/HCPCS: 96375; 96413; 96415; 96417; J1100; J1200; J2469; J7050; J9045; J9267; S0028

== ENCOUNTER → 2019-11-05 | Day surgery (SDC) | payer OTHER ==
[~2019-11-05] MED LIST changes: +Famotidine/PF 20 mg/2ml Vial SLOW IVP SCH; +Sodium Chloride 0.9% 30 ML ONE
[2019-11-05 17:59] VITALS: BP 102/62; TEMP 98.7
== END ==
LOC: ONC/OP 11:15
PROVIDERS: ATTEND Internal Medicine Hematology & Oncology
DX: Z51.11 Encounter for antineoplastic chemotherapy (principal); C56.2 Malignant neoplasm of left ovary
CPT/HCPCS: 96375; 96413; 96415; 96417; J1100; J1200; J2469; J7050; J9045; J9267; S0028

== ENCOUNTER 2019-11-26 09:40 | Day surgery (SDC) | payer OTHER ==
[~2019-11-26 09:40] MED LIST changes: -Famotidine/PF 20 MG in Sodium Chloride 0.9% 50 ML IVPB SCH; -Sodium Chloride 0.9% 30 ML ONE
[2019-11-26] MEDS ORDERED: Sodium Chloride 0.9% 20 ML ONE (09:53)
[2019-11-26 10:33] LABS: Calc. Creatinine Clearance 0 mL/min (70-130); Estimated GFR-MDRD Greater than 90
[2019-11-26 12:22] VITALS: BP 110/57; TEMP 97.8
== END 2019-11-26 15:29 | disposition home or self-care (01) ==
LOC: ONC/OP 09:40
PROVIDERS: ATTEND Internal Medicine Hematology & Oncology
DX: Z51.11 Encounter for antineoplastic chemotherapy (principal); C56.2 Malignant neoplasm of left ovary
CPT/HCPCS: 82565; 96375; 96413; 96415; 96417; J1100; J1200; J2469; J7050; J9045; J9267; S0028

== ENCOUNTER 2019-12-17 10:31 | Outpatient (CLI) | payer OTHER ==
--- NOTE | 2019-12-17 12:07 | CT ---
CT ABDOMEN AND PELVIS WITH IV CONTRAST 12/17/2019 CLINICAL INFORMATION: Ovarian cancer. Patient currently on chemotherapy. COMPARISON: 08/13/2019 Technique: Multiple contiguous axial CT images are obtained through the abdomen and pelvis with IV contrast. Cor onal reformatted images are provided. FINDINGS: Lower Chest: There is a loculated left pleural fluid collection with pleural enhancement. The amount of pleural fluid has decreased from the prior exam. Adjacent consolidation is again seen. Given pleural enhancement, malignancy or infectious process cannot be entirely excluded. Consolidation coul d be related to compressive atelectasis versus pneumonia. Lower attenuation areas are seen within the area of consolidation, and necrotizing pneumonia left lung base cannot be entirely excluded. Righ t lung base is clear. No discrete pulmonary nodule is seen. Vessels: Abdominal aorta is normal in caliber without evidence of an aortic dissection. Abdomen: Portal vein:Patent Gallbladder: There is a focal calcification seen along the posterior wall of the gallbladder neck. Liver: within normal limits. Spleen: within normal limits. Pancreas: within normal limits. Adrenals: within normal limits. Kidneys: within normal limits. Bowel: Normal caliber. Peritoneum: Previously noted intraperitoneal free fluid has resolved. The peritoneal enhancement is l ess conspicuous. There are linear and slight nodular densities within the mesentery of the left anterolateral aspect of the abdomen predominantly in the left lower quadrant suggesting peritoneal sp read of neoplasm, but this is also improved compared to prior exam and likely related to response to therapy. Mesentery and Retroperitoneum: No enlarged mesenteric or retroperitoneal lymph nodes. Previously note d aortocaval lymphadenopathy as well as retrocrural lymphadenopathy including necrotic lymph nodes adjacent to the aortic bifurcation have resolved. Abdominal Wall: within normal limits. Pelvis: Reproductive Organs: The previously seen complex left adnexal cystic lesion is not visualized on this examination. There is mild stranding adjacent to the left ovary. Pelvis within normal limits. Bladder: Mostly decompressed but grossly normal in appearance. Bones: No suspicious lytic or sclerotic osseous lesions are identified. IMPRESSION: 1. Decrease in size of left pleural effusion, but there is evidence of a left loculated pleural fluid collection with persistent area of consolidation adjacent to this region. Low-density areas are seen in the region of consolidation. These findings could be related to infectious process or possibl y secondary to malignancy. 2. Findings likely related to response to therapy regarding intra-abdominal findings with resolution of intraperitoneal free fluid as well as decrease in peritoneal enhancement and improvement in the nodular densities in the abdomen as well as decrease size of aortocaval lymph nodes previously seen o n the prior exam. Necrotic lymph nodes along each proximal iliac chain have also resolved. No enlarged lymph nodes are seen on the current exam. Previously seen cystic left adnexal mass is not vi sualized on this study.
[2019-12-17] MEDS ORDERED: Iopamidol-370 76% 500 ML 1 ML ONE (14:01)
== END 2019-12-17 10:32 | disposition home or self-care (01) ==
LOC: BICCT 10:31
PROVIDERS: ATTEND Obstetrics & Gynecology Gynecologic Oncology
DX: C56.9 Malignant neoplasm of unspecified ovary (principal); J90 Pleural effusion, not elsewhere classified; J18.1 Lobar pneumonia, unspecified organism
CPT/HCPCS: 74177; Q9967